=== PATIENT | female | born 1965 | race Caucasian/White ===

== ENCOUNTER 2020-07-15 11:37 | Emergency (ER) | payer OTHER ==
[2020-07-15] MEDS ORDERED: DOXYCYCLINE MO100 MG PO (12:58)
[2020-07-15] MEDS ORDERED: HYDROCODON-ACE1 EAC2 PO (12:58)
== END 2020-07-15 13:36 | disposition home or self-care (01) ==
LOC: FER 11:37
DX: S42.212A Unspecified displaced fracture of surgical neck of left humerus, initial encounter for closed fracture (principal); I10 Essential (primary) hypertension; Z79.899 Other long term (current) drug therapy; Z88.1 Allergy status to other antibiotic agents; W19.XXXA Unspecified fall, initial encounter
CPT/HCPCS: 73030; 73060

== ENCOUNTER 2020-07-25 06:40 | Inpatient (IN) | payer OTHER ==
[~2020-07-25 06:40] MED LIST: DOXYCYCLINE MO100 MG PO; HYDROCODON-ACE1 EAC2 PO
[2020-07-25] MEDS ORDERED: DICLOFENAC SODI75 MG PO (07:13)
[2020-07-25] MEDS ORDERED: NAPROXEN500 MG PO (07:14)
[2020-07-25] MEDS ORDERED: BUPROPION HCL100 M1 PO (07:15)
[2020-07-25] MEDS ORDERED: TOPAMAX25 MG PO (07:16)
[2020-07-25] MEDS ORDERED: IMITREX100 MG PO (07:17)
[2020-07-25] MEDS ORDERED: FLONASE ALLER15.8 ML (07:17)
[2020-07-25] MEDS ORDERED: TIZANIDINE HCL2 M1 PO (07:20)
[2020-07-25] MEDS ORDERED: MIRTAZAPINE15 MG PO (07:22)
[2020-07-25] MEDS ORDERED: LOSARTAN-HCTZ1 EACH PO (07:24)
[2020-07-25] MEDS ORDERED: PERCOCET 5-3251 EACH PO (07:40)
[2020-07-25 09:27] LABS: ALBUMIN 3.3 g/dL (3.4-5.0); BILIRUBIN - TOTAL 0.3 mg/dL (0.2-1.0); BUN/CREAT RATIO (CALC) 27.4 RATIO; CREATININE 0.62 mg/dL (0.51-0.95); GLOBULIN (CALCULATION) 3.1 g/dL; POTASSIUM 3.7 mmol/L (3.5-5.1); TOTAL PROTEIN 6.4 g/dL (6.4-8.2)
[2020-07-25 09:30] LABS: HCT 35.7 % (37.0-47.0); HGB 11.5 g/dl (12.5-16.0); MCH 28.6 pg (25.0-31.0); MCHC 32.2 g/dL (32.0-36.0); MCV 88.8 fL (78.0-100.0); MPV 10.5 fL (6.0-9.5); RBC 4.02 M/uL (4.20-5.40); RDW 12.6 % (11.5-14.0); WBC 4.8 K/uL (4.0-10.5)
[2020-07-25 09:47] LABS: INR 1.06 (0.9-1.2); PROTHROMBIN TIME 13.1 SECONDS (11.4-13.6); PTT 30.6 SECONDS (22.2-34.7)
[2020-07-26] MEDS ORDERED: FEOSOL325 MG PO (08:31)
[2020-07-26] MEDS ORDERED: ASPIRIN81 MG PO (08:31)
[2020-07-26] MEDS ORDERED: AMOX TR-K CLV1 EAC4 PO (08:31)
[2020-07-26 09:22] LABS: BUN/CREAT RATIO (CALC) 19.4 RATIO; CREATININE 0.62 mg/dL (0.51-0.95); POTASSIUM 3.9 mmol/L (3.5-5.1)
[2020-07-26 09:24] LABS: BASOPHIL 0.5 % (0-2); EOSINOPHIL 3.6 % (0-5); HCT 36.8 % (37.0-47.0); HGB 12.4 g/dl (12.5-16.0); LYMPHOCYTE 8.5 % (15-48); MCH 28.8 pg (25.0-31.0); MCHC 33.7 g/dL (32.0-36.0); MCV 85.4 fL (78.0-100.0); MONOCYTE 8.5 % (0-12); MPV 11.2 fL (6.0-9.5); NEUTROPHIL 78.7 % (41-80); NRBC 0; PLT 239 K/uL (150-400); RBC 4.31 M/uL (4.20-5.40); RDW 12.9 % (11.5-14.0); WBC 8.9 K/uL (4.0-10.5)
== END 2020-07-26 15:09 | disposition home health service (06) | DRG 483 ==
LOC: FSDC 06:40 → FMS 10:41
PROVIDERS: ADMIT Orthopaedic Surgery
PROC: 0LS40ZZ Reposition Left Upper Arm Tendon, Open Approach (ICD-10-PCS; 2020-07-25)
PROC: 0RRK00Z Replacement of Left Shoulder Joint with Reverse Ball and Socket Synthetic Substitute, Open Approach (ICD-10-PCS; principal; 2020-07-25 08:00)
DX: S42.292A Other displaced fracture of upper end of left humerus, initial encounter for closed fracture (principal); L03.113 Cellulitis of right upper limb; I10 Essential (primary) hypertension; G43.909 Migraine, unspecified, not intractable, without status migrainosus; F41.9 Anxiety disorder, unspecified; F32.9 Major depressive disorder, single episode, unspecified; S51.851A Open bite of right forearm, initial encounter; W55.01XA Bitten by cat, initial encounter
CPT/HCPCS: 36415; 80048; 80053; 85025; 85610; 85730; 86850; 86900; 86901; 88305; 93005; 94010; 97116; 97162; 97166; 97530-GP; 97535; C1713; C1776; J0171; J0360; J0697; J1170; J1885; J2250; J2270; J2370; J2405; J2704; J2795; J3010; J3490; J7120